=== PATIENT | male | born 1980 | race Caucasian/White ===

== ENCOUNTER 2022-08-31 08:42 | Outpatient (CLI) | payer OTHER ==
[2022-08-31 09:31] VITALS: BP 126/80
--- NOTE | 2022-08-31 09:31 | SLEEP CARE CONSULTATION ---
Information from patient questionnaire entered by Kandace Banuelos. I have reviewed and concur with the information entered by Kandace Banuelos. This document represents the service I personally performed and the decisions made by me, Danisha Cheng ARNP. History of Present Illness Service Date and Time: 08/31/2022 0842 Reason for Visit: New patient Chief Complaint: reports: Insomnia, Unrefreshed sleep, Snoring, Observed pauses in breathing, Frequent awakenings at night Date of Onset: 10YRS Usual bedtime: 9-10 PM Time it takes to fall asleep: 5 MIN Snores at night: Yes Observed to quit breathing while asleep: Yes Sleeps alone due to snoring: No Number of times waking at night: 1-2 Reasons for waking at night: reports: Gasping for air (after a nightmare, not often), Bathroom, Other (UNKNOWN). denies: Choking, Snoring Toss, Turn, or Twitch while sleeping: No Recalls having dreams: Yes Usually gets out of bed at: 430-630AM; 6-7 AM on weekends Feels refreshed in the morning: No Morning headache: No Sleepy or fatigued during the day: Yes Ever fallen asleep while driving: No Takes day naps: No (maybe 1-2 times a month) Dreams during day naps: No Prior sleep studies: No Additional HPI information: I had the pleasure of seeing DARIEN PATEL today regarding the possibility of him having a sleep disorder. His current complaints are frequent night awakenings, observed pauses in breathing, snoring and unrefreshed sleep. He states that his had told him that he will stop breathing and sounds like he is choking a little. He states in the last year he has started to wake up more frequently with difficulty falling back to sleep. 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 He is also dealing with more anxiety in last 6 months or so which may also be contributing. He does not feel that he is getting enough exercise in last year with a 10 pound weight gain. 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 Patient is and lives in [place]. Have you smoked in the past 12 months: No Alcohol use: Yes Alcohol amount and frequency: 1-2 DRINKS PER DAY Caffeine use: Yes Caffeine amount and frequency: 1-2 CUPS PER DAY Family History Family history of sleep disordered breathing: Yes Family Hx Sleep Apnea: Father: Snoring, Other: Sleep apnea - Treated ([facility] ) Allergies and Home Medications Known drug allergies: No Drug allergies reviewed: Yes (NKDA) Home medication list reviewed: Yes Allergy and home medication list: Medications: Levothyroxine 50 mcg daily OTC Omeprazole 3 days a week on average Review of Systems Weight gain over past 5 years: 10 Cardiovascular: reports: high blood pressure (borderline) Respiratory: denies: shortness of breath Gastrointestinal: reports: heartburn Neurological: denies: headaches Psychiatric: reports: anxiety Ear/Nose/Throat: reports: tonsillectomy, wisdom teeth removed Endocrine: reports: thyroid disease, sluggishness Musculoskeletal: reports: back pain Physical Exam Vital signs obtained and entered by: KANDACE Vaughan MA Blood Pressure: 126/80 (LEFT ARM) Cuff size: regular Heart Rate: 64 O2 Saturation: 96 Height: 5 ft 10 in Weight: 174 lb 9.6 oz Body Mass Index: 25.0 BMI Classification: Overweight Neck circumference: 15 Mouth and throat: narrow oropharynx Soft palate: long Hard palate: normal Uvula: normal Uvula visualization: 25% Mallampati Class III Tongue: enlarged in size with teeth moreno on lateral edges Tonsils: absent bilaterally Neck: normal w/o lymphadenopathy or thyromegaly Heart: regular rate and rhythm Lungs: clear bilaterally Impression and Plan 1. Suspected Obstructive Sleep Apnea-Hypopnea Syndrome, as suggested by a history of loud and irregular snoring, observed cessation of breath while asleep, gasping or choking in sleep, frequent awakening during the night, unrefreshed sleep and cognitive impairment. Narrow oropharynx and obesity are common predisposing factors for obstructive sleep apnea-hypopnea syndrome. I recommend proceeding to polysomnography to confirm the diagnosis and to assess severity. If the patient has significant sleep disordered breathing, a manual CPAP titration study will also be performed to find the optimal treatment pressure. I informed the patient of what the sleep studies involve and after some discussion, obtained agreement to proceed. The pathophysiology of obstructive sleep apnea-hypopnea syndrome was discussed with the patient and health risks of cardiovascular and cerebrovascular disease if not treated. Risks of drowsy driving discussed in detail and patient advised to avoid long distance driving and to pulling unit floorhand at the first sign of drowsiness. Patient agreed to plan. * Schedule polysomnography * Avoid long distance driving or driving when feeling sleepy. * Avoid alcohol, sedative and muscle relaxant around bedtime. * Attempt to lose weight. * Review instructions provided by trained office staff on how to prepare for the sleep study. * Return for follow-up after sleep study completed. Counseling Topics: Weight loss health impact Visit Type: In Office Time Spent with Patient (minutes): 30 Provider Statement: I spent 100% of the Face to Face Visit with the patient with greater than 50% spent counseling the patient and coordination of care.
== END 2022-08-31 08:43 | disposition home or self-care (01) ==
LOC: SC 08:42
PROVIDERS: ATTEND Nurse Practitioner Family
DX: G47.8 Other sleep disorders (principal); R06.83 Snoring; R06.81 Apnea, not elsewhere classified; R41.89 Other symptoms and signs involving cognitive functions and awareness; E66.3 Overweight; Z68.25 Body mass index [BMI] 25.0-25.9, adult
CPT/HCPCS: 99203; 99212

== ENCOUNTER 2022-09-27 10:14 | Outpatient (CLI) | payer OTHER | END 2022-09-27 10:15 | disposition home or self-care (01) | LOC: SC 10:14 | PROVIDERS: ATTEND Nurse Practitioner Family | DX: G47.33 Obstructive sleep apnea (adult) (pediatric) (principal); R09.02 Hypoxemia | CPT/HCPCS: 95806 ==

== ENCOUNTER 2022-10-11 09:12 | Outpatient (CLI) | payer OTHER ==
--- NOTE | 2022-10-11 09:11 | SLEEP CARE CONSULTATION ---
Information from patient questionnaire entered by Kandace Banuelos. I have reviewed and concur with the information entered by Kandace Banuelos. This document represents the service I personally performed and the decisions made by , Danisha Cheng ARNP. History of Present Illness Service Date and Time: 10/11/2022 0900 Initial [place] Sleepiness Scale score: 7 (08/31/22) Current [place] Sleepiness Scale score: 7 (10/11/22) Additional HPI information: DARIEN PATEL returns via video telehealth visit for follow up and results of the recently performed home sleep study. I explained the pathophysiology behind obstructive sleep apnea. We then spent quite a bit of time discussing different treatment options. For mild obstructive sleep apnea, surgery and oral appliance are alternatives to nasal CPAP therapy but in moderate or severe cases, nasal CPAP is the most effective and reliable treatment. Because apnea is primarily in supine position, then positional management therapy could be effective. Methods discussed such as positioning with pillows, positioning devices or yudy shirt with balls sewn in the back to prevent supine sleep. I reviewed the impact of weight changes on sleep apnea and strongly recommended losing weight. Patient counseled not drink alcohol less than 4 hours before bedtime as it can increase snoring and apnea. Patient was cautioned about risks of drowsy driving until sleepiness symptoms resolve. Aileen melendez denies drowsy driving. Sleep Study - Results Type of Sleep Study: Home sleep study (COMPLETED 09/27/22) Prior sleep studies: No Polysomnography/Home Sleep Study results: Physician Impression: The quality of the study is good. The length of the study is adequate (> 240 minutes). Please also see the tabulated and graphic data. 1. Obstructive Sleep Apnea-Hypopnea (ICD-10 G47.33), mild, with an AHI of 11.2/hr and doyle SaO2 of 85%. During the study, the patient had 39 apneas (39 obstructive, 0 central, 0 mixed) and 31 hypopneas. The longest episode lasted 123.5 seconds. The respiratory events occurred almost exclusively during supine sleep (supine AHI was 13.2 and non-supine, 0.99). 2. Hypoxemia (ICD-10 R09.02), mild, with the lowest oxygen saturation of 85 % and 2.5 minutes with SaO2 under 90%. Baseline oxygen saturation was normal (Average oxygen saturation was 95%). Allergies and Home Medications Known drug allergies: No Drug allergies reviewed: Yes Home medication list reviewed: Yes (no changes) Allergy and home medication list: Allergies No Known Drug Allergies Allergy (Verified 10/10/22 15:00) Review of Systems Review of systems same as previous: Yes (no changes) Physical Exam Vital signs obtained and entered by: KANDACE Vaughan MA Height: 5 ft 10 in (PER PT) Weight: 170 lb (PER PT) Body Mass Index: 24.3 BMI Classification: Normal Impression and Plan 1. Obstructive Sleep Apnea-Hypopnea Syndrome, mild, with lowest oxygen saturation of 85%. Obviously this is the cause of the patients symptoms of unrefreshed sleep, and excessive daytime sleepiness. Positive pressure therapy could benefit anxiety and gastric reflux. Since patients apnea is primarily in supine position, patient advised to try positional therapy and agreed with plan. He is also advised to lose weight as this will reduce snoring and apnea. An oral appliance can also be used for snoring but often is not covered by insurance. Follow up is scheduled for one month to check effectiveness and if further evaluation is indicated. 2. Hypoxemia, mild, with the lowest oxygen saturation of 85 % and 2.5 minutes with SaO2 under 90%. His baseline oxygen saturation was normal with an average oxygen saturation of 95%. * Positional therapy * Maintain a healthy weight. * Avoid alcohol consumption near bedtime. * Avoid supine sleep * Return in one month. I will assess response to therapy at that time. Counseling Topics: Sleeping position, Weight control Visit Type: Telehealth Video Video Type: [employer] [facility] Patient Location: car Location of Provider: Office Patient agrees and consents to this telehealth visit type: Yes Patient agrees to have their insurance billed: Yes Time Spent with Patient (minutes): 11 Provider Statement: I spent 100% of the Telehealth Video Call with the patient with greater than 50% spent counseling the patient and coordination of care.
== END 2022-10-11 09:13 | disposition home or self-care (01) ==
LOC: SC 09:12
PROVIDERS: ATTEND Nurse Practitioner Family
DX: G47.33 Obstructive sleep apnea (adult) (pediatric) (principal); R09.02 Hypoxemia